=== PATIENT | male | born 1955 | race Caucasian/White ===

== ENCOUNTER 2023-01-24 15:00 | Emergency (ER) | payer OTHER ==
[~2023-01-24] VITALS: Ht 188 cm; Wt 94.3 kg
[2023-01-24 15:22] VITALS: BP_SYST 105; PULSE 82; RESP 16; TEMP 97.4; O2SAT 96
[2023-01-24] MEDS ORDERED: ROSU10TA29 PO (15:42)
[2023-01-24] MEDS ORDERED: METO-540 PO (15:42)
[2023-01-24] MEDS ORDERED: INSU100I4 SQ (15:47)
[2023-01-24] MEDS ORDERED: SIMV-46 PO (15:47)
[2023-01-24 16:23] LABS: HEMOGLOBIN 17.2 g/dL (14.0-18.0); MEAN CORPUSCULAR HEMOGLOBIN 28 pg (27-31)
[2023-01-24 16:28] LABS: BASOPHILS % (AUTO) 0.6 % (0.0-2.0); EOSINOPHILS # (AUTO) 0.1 K/uL (0.0-0.4); EOSINOPHILS % (AUTO) 1.2 % (0.0-4.0); HEMATOCRIT 51.8 % (36-54); LYMPHOCYTES # (AUTO) 0.7 K/uL (1.0-5.5); LYMPHOCYTES % (AUTO) 9.7 % (20.5-51.5); MEAN CORPUSCULAR HGB CONC 33 % (32-36); MEAN CORPUSCULAR VOLUME 84 fL (79.0-98.0); MONOCYTES # (AUTO) 0.1 K/uL (0.0-1.0); NEUTROPHILS # (AUTO) 6.5 K/uL (1.8-7.7); NEUTROPHILS % (AUTO) 86.5 % (40.0-70.0); PLATELET COUNT (AUTO) 187 K/uL (130-430); RED BLOOD CELL COUNT(AUTO) 6.19 MIL/uL (4.2-6.2); RED CELL DISTRIBUTION WIDTH 14.4 % (9.0-15.0); WHITE BLOOD COUNT (AUTO) 7.5 K/uL (4.8-10.8)
[2023-01-24 16:33] LABS: INR 0.9 (0.80-1.20); PROTHROMBIN TIME 9.5 SECS (9.5-12.5)
[2023-01-24 16:38] LABS: ALANINE AMINOTRANSFERASE 53 U/L (12-78); ALBUMIN 3.7 g/dL (3.4-4.8); ANION GAP 9 (5-15); ASPARTATE AMINOTRANSFERASE 28 U/L (10-37); CALCIUM 9.6 mg/dL (8.4-11.0); CARBON DIOXIDE 25 mmol/L (23-29); CHLORIDE 101 mmol/L (98-107); GFR AFRICAN AMERICAN 86 mL/min (>90); GLUCOSE 340 mg/dL (74-106); POTASSIUM 4.5 mmol/L (3.5-5.1); SODIUM SERUM 135 mmol/L (136-145); TOTAL BILIRUBIN 0.4 mg/dL (0.0-1.0); TOTAL PROTEIN, SERUM 7.3 g/dL (6.4-8.3); UREA NITROGEN, BLOOD 16 mg/dL (8-21)
[2023-01-24 16:43] LABS: BILIRUBIN,URINE NEGATIVE (NEGATIVE); BLOOD, URINE NEGATIVE (NEGATIVE); CLARITY/URINE CLEAR (CLEAR); COLOR,URINE YELLOW (YELLOW); GLUCOSE,URINE 3+ (NEGATIVE); KETONES,URINE NEGATIVE (NEGATIVE); LEUKOCYTE ESTERASE ,URINE NEGATIVE (NEGATIVE); NITRITE, URINE NEGATIVE (NEGATIVE); PROTEIN URINE NEGATIVE (NEGATIVE); UROBILINOGEN,URINE 0.2 (0.2-1.0)
[2023-01-24 16:44] LABS: GFR NON AFRICAN-AMERICAN 71 mL/min (>90)
[2023-01-24 16:48] LABS: CREATINE KINASE, TOTAL 52 U/L (39-308); FREE T4 (FREE THYROXINE) 0.9 ng/dl (0.8-1.5)
[2023-01-24] MEDS ORDERED: INSULIN REGULAR, HUMAN 100 UNITS/ML, 3 ML VIAL SUBCUT ONE (17:00)
[2023-01-24] MEDS ORDERED: INSULIN REGULAR, HUMAN 10 UNITS/0.1 ML, 3 ML VIAL ONE (17:07)
[2023-01-24 17:13] LABS: ACETONE, SERUM SMALL (NEGATIVE)
[2023-01-24 17:25] VITALS: BP_SYST 114; PULSE 82; RESP 16; TEMP 97.4; O2SAT 96
== END 2023-01-24 17:25 | disposition home or self-care (01) ==
LOC: SED 15:00
DX: E11.65 Type 2 diabetes mellitus with hyperglycemia (principal); R53.1 Weakness; R42 Dizziness and giddiness; Z79.4 Long term (current) use of insulin; Z79.899 Other long term (current) drug therapy
CPT/HCPCS: 36415; 70450-TC; 71045; 76376; 80053; 81001; 81003; 82009; 82550; 82962; 83605; 84439; 84443; 84484; 85025; 85610-TC; 85730-TC; 93005; 96372; 99285; J1815